=== PATIENT | male | born 1995 | race Caucasian/White ===

== ENCOUNTER → 2019-07-06 | Outpatient (CLI) | payer BC ==
--- NOTE | 2019-07-06 16:11 | US ---
EXAMINATION TYPE: US scrotum with doppler. Grayscale and color Doppler Duplex imaging performed of t he scrotum. DATE OF EXAM: 07/06/2019 COMPARISON: NONE CLINICAL HISTORY: N50.89 Testicular Pain. Bilateral testicular pain x 2 days EXAM MEASUREMENTS: TESTICLES: Right Testicle: 3.3 x 2.3 x 3.1 cm Left Testicle: 4.5 x 2.6 x 2.4 cm EPIDIDYMIS HEAD: Right Epididymis: 0.9 x 0.9 x 1.1 cm Left Epididymis: 0.8 x 1.0 x 1.1 cm Doppler performed to assess for testicular vascularity; good bilateral color flow and waveforms are s een. There is no evidence of testicular torsion. Presence of hydroceles: no Presence of varicoceles: no Right epididymis: 0.4cm cyst IMPRESSION: No sonographic evidence of testicular torsion at the time of examination. Unremarkable te sticular ultrasound other than a 4 mm right epididymal cyst.
== END | disposition home or self-care (01) ==
LOC: RADUSWWP 15:24
PROVIDERS: ATTEND Nurse Practitioner Family
DX: N50.3 Cyst of epididymis (principal)
CPT/HCPCS: 76870; 93975

== ENCOUNTER 2022-06-13 08:59 | Emergency (ER) | payer BC ==
[2022-06-13 09:22] VITALS: TEMP 99.8
[2022-06-13] MEDS ORDERED: KETOROLAC 15 MG/ML 1 ML VIAL IVP STA (10:57)
[2022-06-13] MEDS ORDERED: SODIUM CHLORIDE 0.9% 1,000 ML IV STA (10:57)
[2022-06-13] MEDS ORDERED: DEXAMETHASONE SOD PHOSPHATE 10 MG/ML 1 ML VIAL IVP STA (11:01)
[2022-06-13] MEDS ORDERED: AMPICILLIN 250 MG VIAL IV ONE (11:02)
--- NOTE | 2022-06-13 11:03 | ED ---
URI HPI - General Chief Complaint: Upper Respiratory Infection Stated Complaint: URI Time Seen by Provider: 06/13/22 10:39 Source: patient, RN notes reviewed Mode of arrival: ambulatory Limitations: no limitations - History of Present Illness Initial Comments: Patient is a 27-year-old male presenting to the emergency room with complaints of ongoing for over 2 weeks of cough congestion sore throat and pain with swallowing. He states that he has been to urgent care multiple times and then on 2 courses of antibiotics including amoxicillin and then Zithromax with steroids with no improvement in symptoms. He has one day left of his Zithromax a nd Medrol Dosepak but stopped taking the medications due to lack of improvement. He reports being tested for Covid along with strep and was negative. He states that he has had fevers off and on with occasional chills. He complains of generalized malaise without any known weakness. He denies any chest pain, shortness of breath, abdominal pain nausea, vomiting, altered mental status, headache, or dizziness. He denies any significant past medical history and with the exception of his recent antibiotic regimen he is not taking any medications on a regular basis. - Related Data Home Medications Medication Instructions Recorded Confirmed Acetaminophen Tab [Tylenol Tab] 1,000 mg PO Q6H PRN 06/13/22 06/13/22 Azithromycin [Zithromax Z Pack] See Taper PO DAILY 06/13/22 06/13/22 methylPREDNISolone [Medrol Dose See Taper PO DIRECTED 06/13/22 06/13/22 Pack] Allergies Allergy/AdvReac Type Severity Reaction Status Date / Time No Known Allergies Allergy Verified 06/13/22 15:15 Review of Systems ROS Statement: Those systems with pertinent positive or pertinent negative responses have been documented in the HPI. ROS Other: All systems not noted in ROS Statement are negative. Past Medical History Past Medical History: No Reported History History of Any Multi-Drug Resistant Organisms: None Reported Past Surgical History: No Surgical Hx Reported Past Psychological History: No Psychological Hx Reported Smoking Status: Never smoker Past Alcohol Use History: None Reported Past Drug Use History: None Reported General Exam General appearance: alert, in no apparent distress Head exam: Present: normocephalic, normal inspection Eye exam: Present: normal appearance, PERRL ENT exam: Present: TM's normal bilaterally Expanded Ear exam: Present: normal external inspection Mouth exam: Present: normal external inspection Teeth exam: Present: normal inspection Throat exam: tonsillar erythema, tonsillomegaly, tonsillar exudate Neck exam: Present: tenderness, full ROM, lymphadenopathy Respiratory exam: Present: normal lung sounds bilaterally. Absent: respiratory distress, wheezes, rales, rhonchi, stridor Cardiovascular Exam: Present: regular rate, normal rhythm, normal heart sounds. Absent: systolic murmur, diastolic murmur, rubs, gallop, clicks GI/Abdominal exam: Present: soft, normal bowel sounds. Absent: distended, tenderness, guarding, rebound, rigid Rectal exam: Present: deferred Extremities exam: Present: normal inspection. Absent: pedal edema, joint swelling Back exam: Present: normal inspection Neurological exam: Present: alert, oriented X3, CN II-XII intact Psychiatric exam: Present: normal affect, normal mood Skin exam: Present: warm, dry, intact, normal color. Absent: rash Course Vital Signs 06/13/22 06/13/22 09:19 13:36 Temperature 99.8 F H Pulse Rate 98 91 Respiratory 20 18 Rate Blood Pressure 130/76 133/76 O2 Sat by Pulse 97 98 Oximetry Medical Decision Making - Medical Decision Making 27-year-old male presenting with sore throat congestion and cough ongoing for several weeks along with generalized malaise no response to antibiotic therapy recently. No indication for diagnostic imaging. Will obtain CBC, Cephid swab for flu, RSV and Covid, strep swab, BMP and lactic acid. Will plan further labs pending results. We'll give IV fluid bolus and Toradol for pain and swelling monitor response. Given failed Zithromax and amoxicillin will give a dose of ampicillin as well. No significant improvement in pain or swelling with Toradol will give dose of Decadron. Swabs negative for covid, flu, RSV, and strep. CBC shows slightly elevated WBCs at 10.7 reactive lymphocytes will add heterophile. Lactic acid normal. BMP without abnormalities. Heterophile positive. Education regarding mononucleosis provided encourage symp tomatic management with Tylenol or ibuprofen along with good hydration and avoidance of sharing drinks or or kissing. Does not participate in contact sports. Will discharge home in stable condition with follow-up with his primary care provider. Case discussed with Dr. Wilson. - Lab Data Result diagrams: 06/13/22 11:34 06/13/22 11:34 Lab Results 06/13/22 06/13/22 06/13/22 Range/Units 11:34 11:34 11:34 WBC 10.7 H (3.8-10.6) k/uL RBC 4.75 (4.30-5.90) m/uL Hgb 14.1 (13.0-17.5) gm/dL Hct 41.4 (39.0-53.0) % MCV 87.3 (80.0-100.0) fL MCH 29.7 (25.0-35.0) pg MCHC 34.0 (31.0-37.0) g/dL RDW 13.7 (11.5-15.5) % Plt Count 214 (150-450) k/uL MPV 9.0 Neutrophils % (Manual) 51 % Lymphocytes % (Manual) 41 % Monocytes % (Manual) 8 % Neutrophils # (Manual) 5.46 (1.3-7.7) k/uL Lymphocytes # (Manual) 4.39 (1.0-4.8) k/uL Monocytes # (Manual) 0.86 (0-1.0) k/uL Nucleated RBCs 0 (0-0) /100 WBC Manual Slide Review Performed Reactive Lymphocytes Present RBC Morphology Normal Sodium 137 (137-145) mmol/L Potassium 4.2 (3.5-5.1) mmol/L Chloride 102 (98-107) mmol/L Carbon Dioxide 27 (22-30) mmol/L Anion Gap 8 mmol/L BUN 12 (9-20) mg/dL Creatinine 0.66 (0.66-1.25) mg/dL Est GFR (CKD-EPI)AfAm >90 (>60 ml/min/1.73 sqM) Est GFR (CKD-EPI)NonAf >90 (>60 ml/min/1.73 sqM) Glucose 98 (74-99) mg/dL Plasma Lactic Acid Dmitry 1.0 (0.7-2.0) mmol/L Calcium 8.7 (8.4-10.2) mg/dL Heterophile Antibody (Negative) Influenza Type A (PCR) (Not Detectd) Influenza Type B (PCR) (Not Detectd) RSV (PCR) (Not Detectd) SARS-CoV-2 (PCR) (Not Detectd) Group A Strep (PCR) (Not Detectd) 06/13/22 06/13/22 06/13/22 Range/Units 11:34 11:34 11:34 WBC (3.8-10.6) k/uL RBC (4.30-5.90) m/uL Hgb (13.0-17.5) gm/dL Hct (39.0-53.0) % MCV (80.0-100.0) fL MCH (25.0-35.0) pg MCHC (31.0-37.0) g/dL RDW (11.5-15.5) % Plt Count (150-450) k/uL MPV Neutrophils % (Manual) % Lymphocytes % (Manual) % Monocytes % (Manual) % Neutrophils # (Manual) (1.3-7.7) k/uL Lymphocytes # (Manual) (1.0-4.8) k/uL Monocytes # (Manual) (0-1.0) k/uL Nucleated RBCs (0-0) /100 WBC Manual Slide Review Reactive Lymphocytes RBC Morphology Sodium (137-145) mmol/L Potassium (3.5-5.1) mmol/L Chloride (98-107) mmol/L Carbon Dioxide (22-30) mmol/L Anion Gap mmol/L BUN (9-20) mg/dL Creatinine (0.66-1.25) mg/dL Est GFR (CKD-EPI)AfAm (>60 ml/min/1.73 sqM) Est GFR (CKD-EPI)NonAf (>60 ml/min/1.73 sqM) Glucose (74-99) mg/dL Plasma Lactic Acid Dmitry (0.7-2.0) mmol/L Calcium (8.4-10.2) mg/dL Heterophile Antibody Positive (Negative) Influenza Type A (PCR) Not Detected (Not Detectd) Influenza Type B (PCR) Not Detected (Not Detectd) RSV (PCR) Not Detected (Not Detectd) SARS-CoV-2 (PCR) Not Detected (Not Detectd) Group A Strep (PCR) NOT DETECTED (Not Detectd) Disposition Clinical Impression: Mononucleosis syndrome Disposition: HOME SELF-CARE Condition: Stable Instructions (If sedation given, give patient instructions): Mononucleosis (ED) Additional Instructions: Please drink plenty of fluids. Utilize Tylenol or ibuprofen as needed for pain, swelling or fevers. Avoid sharing of drinks and other contact that could transmit your current mononucleosis infection. Please follow-up with your primary care provider. May discontinue previously prescribed antibiotic and steroid regiment from urgent care. Please return to the Emergency Department if symptoms worsen or any other concerns. Is patient prescribed a controlled substance at d/c from ED?: No Referrals: None,Stated [Primary Care Provider] - 1-2 days Time of Disposition: 15:12
[2022-06-13 12:04] LABS: HCT 41.4 % (39.0-53.0); HGB 14.1 gm/dL (13.0-17.5); MCH 29.7 pg (25.0-35.0); MCV 87.3 fL (80.0-100.0); Platelet Count 214 k/uL (150-450); RBC 4.75 m/uL (4.30-5.90); RDW 13.7 % (11.5-15.5); WBC 10.7 k/uL (3.8-10.6)
[2022-06-13 12:18] LABS: African American GFR (CKD) >90 (>60 ml/min/1.73 sqM); Anion Gap 8 mmol/L; Blood Urea Nitrogen 12 mg/dL (9-20); Calcium 8.7 mg/dL (8.4-10.2); Carbon Dioxide 27 mmol/L (22-30); Chloride 102 mmol/L (98-107); Glucose 98 mg/dL (74-99); Non-African American GFR(CKD) >90 (>60 ml/min/1.73 sqM); Potassium 4.2 mmol/L (3.5-5.1); Sodium 137 mmol/L (137-145)
[2022-06-13 13:09] LABS: Lymphocytes # (M) 4.39 k/uL (1.0-4.8); Monocytes # (M) 0.86 k/uL (0-1.0); Neutrophils # (M) 5.46 k/uL (1.3-7.7); Neutrophils % (M) 51 %; Nucleated Red Blood Cells 0 /100 WBC (0-0); Total Cells Counted 100
[2022-06-13 13:10] LABS: RBC Morphology Normal
[2022-06-13 13:11] LABS: Reactive Lymphocytes Present
[2022-06-13 13:36] VITALS: BP 133/76; PULSE 91; RESP 18
== END 2022-06-13 15:42 | disposition home or self-care (01) ==
LOC: EC 08:59
DX: B27.90 Infectious mononucleosis, unspecified without complication (principal); Z20.822 Contact with and (suspected) exposure to COVID-19
CPT/HCPCS: 36415; 87651; 80048; 83605; 85025; 86308; 87070; 87636; 99283; 96374; 96375 ×2; 96361; J0290; J1100

== ENCOUNTER → 2023-07-29 | Outpatient (CLI) | payer BC ==
[2023-07-29 15:00] LABS: Basophils # (A) 0.03 X 10*3/uL (0.00-0.10); Basophils % (A) 0.5 %; Eosinophils # (A) 0.05 X 10*3/uL (0.04-0.35); Eosinophils % (A) 0.8 %; HCT 43.7 % (39.6-50.0); HGB 14.4 g/dL (13.0-17.0); Lymphocytes # (A) 1.74 X 10*3/uL (0.90-5.00); Lymphocytes % (A) 27.7 %; MCH 29.7 pg (27.0-32.0); MCV 90.1 FL (80.0-97.0); Mean Platelet Volume 10.6 FL (9.5-12.2); Monocytes # (A) 0.33 X 10*3/uL (0.20-1.00); Monocytes % (A) 5.2 %; NRBC Per 100 WBC 0 X 10*3/uL (0.00-0.01); Neutrophils # (A) 4.12 X 10*3/uL (1.80-7.70); Neutrophils % (A) 65.5 %; Platelet Count 260 X 10*3/uL (140-440); RBC 4.85 X 10*6/uL (4.40-5.60); RDW 11.9 % (11.5-14.5); WBC 6.29 X 10*3/uL (4.50-10.00)
[2023-07-29 15:31] LABS: ALT 39 U/L (10-49); AST 22 U/L (14-35); Albumin 4.5 g/dL (3.8-4.9); Albumin/Globulin Ratio 1.61 Ratio (1.60-3.17); Alkaline Phosphatase 128 U/L (41-126); BUN/Creat Ratio 18.67 Ratio (12.00-20.00); Blood Urea Nitrogen 16.8 mg/dL (9.0-27.0); Carbon Dioxide 28.8 mmol/L (21.6-31.8); Chloride 102 mmol/L (96-109); Chol/HDL Ratio 4.14 Ratio; Estradiol <20.0 pg/mL; Globulin 2.8 g/dL (1.6-3.3); Glucose 93 mg/dL (70-110); LDL Cholesterol,Calculated 134.1 mg/dL (0.0-131.0); Potassium 4.8 mmol/L (3.5-5.5); Sodium 143 mmol/L (135-145); Total Bilirubin 0.2 mg/dL (0.3-1.2); Total Protein 7.3 g/dL (6.2-8.2)
== END | disposition home or self-care (01) ==
LOC: LABWHC1 10:44
PROVIDERS: ATTEND Family Medicine
DX: F64.9 Gender identity disorder, unspecified (principal); R53.82 Chronic fatigue, unspecified
CPT/HCPCS: 36415; 80053; 80061; 82306; 82670; 83036; 84403; 84443; 85025

== ENCOUNTER → 2024-07-28 | Outpatient (CLI) | payer BC ==
[2024-07-28 10:41] LABS: ALT 41 U/L (10-49); AST 25 U/L (14-35); Albumin 4.3 g/dL (3.8-4.9); Albumin/Globulin Ratio 1.54 Ratio (1.60-3.17); Alkaline Phosphatase 130 U/L (41-126); Bilirubin, Conjugated <0.20 mg/dL (0.20-0.40); Bilirubin,Unconjugated >0.10 mg/dL (0.20-1.00); Globulin 2.8 g/dL (1.6-3.3); Total Bilirubin 0.3 mg/dL (0.3-1.2); Total Protein 7.1 g/dL (6.2-8.2)
[2024-07-28 10:50] LABS: Hepatitis A Antibody IgM Nonreactive (Nonreactive); Hepatitis B Core IgM Nonreactive (Nonreactive); Hepatitis B Surface Antigen Nonreactive (Nonreactive); Hepatitis C IgG Antibody Nonreactive (Nonreactive)
[2024-07-28 11:03] LABS: Ceruloplasmin 26.2 mg/dL (20.0-60.0)
--- NOTE | 2024-07-29 16:41 | US ---
EXAMINATION TYPE: US liver DATE OF EXAM: 07/28/2024 COMPARISON: NONE CLINICAL INDICATION: Male, 29 years old with history of Elevated Liver Enzymes; High cholesterol; ?Co ncern for hepatitis. Patient denies any other signs, symptoms, or relevant history TECHNIQUE: Grayscale and color Doppler imaging of the right upper quadrant was performed. FINDINGS: EXAM MEASUREMENTS: Liver Length: 13.5 cm Gallbladder Wall: 0.2 cm CBD: 0.3 cm Right Kidney: 10.0 x 6.0 x 5.3 cm [employer] NOTES: Pancreas: wnl Liver: Slightly attenuating, no suspicious masses, dilated ducts or cysts. Gallbladder: wnl Evidence for sonographic Sethi's sign: No CBD: wnl Right Kidney: wnl IMPRESSION: 1. Hepatic steatosis. 2. No acute process. [facility], , 07/29/2024 4:38 PM
== END | disposition home or self-care (01) ==
LOC: RADUSWWP 06:56
PROVIDERS: ATTEND Family Medicine
DX: K76.0 Fatty (change of) liver, not elsewhere classified (principal); E78.00 Pure hypercholesterolemia, unspecified; R74.8 Abnormal levels of other serum enzymes
CPT/HCPCS: 76705; 80074; 80076; 82390; 83516

== ENCOUNTER → 2024-10-21 | Outpatient (CLI) | payer BC ==
[2024-10-21 10:31] LABS: Chol/HDL Ratio 3.69 Ratio; Estradiol 57.8 pg/mL; LDL Cholesterol,Calculated 129.9 mg/dL (0.0-131.0); VLDL Calculation 16.74 mg/dL (5.00-40.00)
[2024-10-21 10:32] LABS: ALT 44 U/L (10-49); AST 26 U/L (14-35); Albumin 4.4 g/dL (3.8-4.9); Albumin/Globulin Ratio 1.52 Ratio (1.60-3.17); Alkaline Phosphatase 120 U/L (41-126); BUN/Creat Ratio 20.12 Ratio (12.00-20.00); Blood Urea Nitrogen 16.1 mg/dL (9.0-27.0); Calcium 9.2 mg/dL (8.7-10.3); Carbon Dioxide 26.5 mmol/L (21.6-31.8); Chloride 106 mmol/L (96-109); Globulin 2.9 g/dL (1.6-3.3); Glucose 100 mg/dL (70-110); Potassium 3.8 mmol/L (3.5-5.5); Sodium 141 mmol/L (135-145); Total Bilirubin 0.3 mg/dL (0.3-1.2); Total Protein 7.3 g/dL (6.2-8.2)
== END | disposition home or self-care (01) ==
LOC: LABWHC1 07:41
PROVIDERS: ATTEND Family Medicine
DX: E78.5 Hyperlipidemia, unspecified (principal); F64.9 Gender identity disorder, unspecified; R74.8 Abnormal levels of other serum enzymes
CPT/HCPCS: 36415; 80053; 80061; 82670; 84403